=== PATIENT | female | born 1975 | race Caucasian/White ===

== ENCOUNTER 2020-10-14 23:13 | Inpatient (IN) ==
[2020-10-14] MEDS ORDERED: SODIUM CHLORIDE 0.9% 1000ML 1,000 ML IV ONE (23:33)
--- NOTE | 2020-10-14 23:37 | Emergency Department Note ---
Impression & Plan COVID-19, Generalized weakness, Bigeminy, Acute dehydration, Bradycardia, Aneurysm of ascending aorta ED Provider Note Name: CLEM HAYNES Age: 43 Sex: F Arrives Via: Walk-In Informant: Patient ED Provider: Chip Belle MD Chief Complaint: Lightheaded Impression: COVID-19 Generalized Weakness Bradycardia Bigeminy Acute Dehydration Aneurysm of Ascending Aorta Medical Decision Making: Pleasant 45 yr old female without PMH other than asthma arrives for acute weakness and fatigue. Known COVID positive from test this week. She has been on steroids the last few days already. She is dehydrated on exam and tired appearing. Pulse is only 30 though will note HR 60, though every second beat does not perfuse as bigeminy. She does appear better with some IV fluids though is still quite weak with attempting to stand. Labs unremarkable fortunately. With elevated dimer did feel that CT indicated which reveals COVID findings though no evidence PE, Dissection. Aortic aneurysm noted though this is consistent with incidental finding at this time. She was too weak to go home and hospitalist consulted for further management. Triage/Nursing Notes reviewed by Me Differentials:Reactive airway disease, pneumonia, pneumothorax, COPD, CHF, infections, cardiac ischemia, pulmonary embolism, musculoskeletal, gastr ointestinal, as well as other pathologies. Vital Signs: reviewed and remarkable for Bradycardia Interventions: Saline lock, nss bolsu Labs:Reviewed and remarkable for +dimer Imaging:X ray results are stated below per my interpretation: Chest: 1 view: No infiltrate, no effusion, normal cardiac border. [facility] Radiologist interpretation reviewed by me: CT PE study: no acute findings. Ascending aortic aneurysm EKG:Per My Interpretation: Indication Weakness: 64 bpm, qtc 443. PVS, LAFB, no ischemia. No previous for comparison. Cardiac/Tele Monitoring: Cardiac Monitoring: An Order was placed for continuous cardiac monitoring. The monitor shows a rate of 60 with a bigeminy rhythm. Consults:Dr Taco Gaines hospitalist Plan: Disposition:Hospitalization. Condition: Good Prescriptions:none PDMP: n/a History of Present Illness:43 yr old female arrives for evaluation of lightheadedness. Patient notes she was diagnosed with COVID 1 week ago. She had been having some SHOB for a few days prior to this. She was started on Steroids and notes feeling slightly better. Shortness of breath mostly resolved, but she has been having rapdily worsening weakness and fatigue since then. Admits minimal oral intake due to feeling quite unwell. Associate body aches, weakness, fatigue. Denies current chest pain, syncope, nausea, vomiting, fevers, chills, leg swelling, urinary/bowel changes, abdominal pain, back pain, neck stiffness, spinning vision, weakness in arm/leg nor stroke symptoms nor other symptoms . Denies any medications other than steroid. Exertion makes worse, rest makes better. ROS: See above HPI for pertinent positives & negatives. A total of 10 systems reviewed and were otherwise negative. Past Medical History:Asthma Past Surgical History: Family History:Parents Asthma Social History:Lives in [place], No smoking, no drugs, no alcohol. . Home Medications:Albuterol Allergies:NKDA Vitals:Blood Pressure: 160/110, Pulse 40, RR 19, T 36.5C, O2 98% on RA Physical Exam: GENERAL: Patient is very tired appearing and in mild distress. EYES: No scleral icterus, unremarkable pupils. ENT: Mucous membranes dry, no nasal congestion. NECK: No masses appreciated, nomeningismus, trachea is midline. RESPIRATORY: No dyspnea. Clear to auscultation and equal bilaterally. No wheeze, no rhonchi. CARDIOVASCULAR: Bradycardic.No murmurs, rubs, gallops appreciated. GASTROINTESTINAL: Abdomen soft, non-tender, no peritonitis.Bowel sounds positive.No masses appreciated. BACK: No midline tenderness, no CVA tenderness EXTREMITIES: Normal motion all extremities, no cyanosis, no edema. NEUROLOGIC: Alert and oriented, no acute motor or sensory deficits, no focal weakness, cranial nerves grossly intact. SKIN: No rash, no jaundice, no diaphoresis. PSYCH: Appropriate GCS: 15 ED Course: Times/Reassessments: stable, feeling a bit better though still quite lightheaded with movement. 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 Beliefs That Will Affect Care: None Current Living Situation: Family Other Information That Helps Us Care for You: No Feels Safe at Home: Yes Safety Concerns: Feels Safe At This Time Assistive Devices: None Allergies Allergies Allergy/AdvReac Type Severity Reaction Status Date / Time No Known Allergies Allergy Unverified 10/15/20 00:20 Home Meds Home Medications Medication Instructions Recorded Confirmed B-complex with vitamin C [Stress B 1 tab PO DAILY 10/15/20 10/15/20 Complex W/C] cholecalciferol (vitamin D3) 50 mcg PO DAILY 10/15/20 10/15/20 [Vitamin D3] citalopram 10 mg PO DAILY 10/15/20 10/15/20 propranolol 10 mg PO DAILY 10/15/20 10/15/20 zinc acetate 50 mg PO DAILY 10/15/20 10/15/20 Results & Data (ED) Vital Signs Vital Signs - 24 hr 10/14/20 23:17 10/14/20 23:26 10/15/20 00:00 Temperature 36.5 C Temperature Source Oral Pulse Rate 40 L 70 Pulse Rate [Right Finger] 82 Pulse Rate from SpO2 Sensor 37 L Respiratory Rate 19 19 Respiratory Effort / Characteristics Non-Labored Respiratory Depth Normal Blood Pressure 160/117 H Blood Pressure Mean 131 Pulse Oximetry 98 97 Oxygen Delivery Method Sepsis Recent Fever Within 48 Hours No Sepsis New/Unexplained Change in Mental Status N/A Sepsis Action Taken by Nursing No Action Required 10/15/20 00:13 10/15/20 00:30 10/15/20 01:00 Temperature Temperature Source Pulse Rate 71 69 67 Pulse Rate [Right Finger] Pulse Rate from SpO2 Sensor 35 L 35 L 34 L Respiratory Rate 20 19 19 Respiratory Effort / Characteristics Respiratory Depth Blood Pressure 158/80 H 128/60 123/62 Blood Pressure Mean 98 74 80 Pulse Oximetry 97 96 97 Oxygen Delivery Method Room Air Room Air Sepsis Recent Fever Within 48 Hours Sepsis New/Unexplained Change in Mental Status Sepsis Action Taken by Nursing 10/15/20 01:31 10/15/20 02:00 Temperature Temperature Source Pulse Rate 59 L 63 Pulse Rate [Right Finger] Pulse Rate from SpO2 Sensor 57 L 60 Respiratory Rate 16 16 Respiratory Effort / Characteristics Respiratory Depth Blood Pressure 160/59 H 148/89 H Blood Pressure Mean 97 109 Pulse Oximetry 97 98 Oxygen Delivery Method Room Air Room Air Sepsis Recent Fever Within 48 Hours Sepsis New/Unexplained Change in Mental Status Sepsis Action Taken by Nursing Laboratory Data Result diagrams: 10/15/20 00:05 10/15/20 00:05 Lab Results 10/15/20 10/15/20 10/15/20 Range/Units 00:05 00:05 00:05 WBC 6.48 (4.8-10.8) K/uL RBC 4.43 (4.2-5.4) M/uL Hgb 13.5 (12.0-16.0) g/dL Hct 40.5 (37-47) % MCV 91.4 (80-100) fL MCH 30.5 (25-34) pg MCHC 33.3 (32-36) g/dL RDW Std Deviation 42.3 (36.4-46.3) fL RDW Coeff of Madai 12.6 (11.5-14.5) % Plt Count 322 (130-400) K/uL MPV 10.0 (7.4-10.4) fL Immature Gran % (Auto) 0.6 % Neut % (Auto) 54.6 % Lymph % (Auto) 36.3 % Irion % (Auto) 6.2 % Eos % (Auto) 1.7 % Baso % (Auto) 0.6 % Neut # (Auto) 3.54 (1.4-6.5) K/uL Lymph # (Auto) 2.35 (1.2-3.4) K/uL Irion # (Auto) 0.40 (0.11-0.59) K/uL Eos # (Auto) 0.11 (0-0.5) K/uL Baso # (Auto) 0.04 (0-0.2) K/uL Immature Gran # (Auto) 0.04 H (0.00-0.02) K/uL PT 11.6 (9.0-12.0) Seconds INR 1.1 (0.9-1.1) APTT 26.0 (21.0-31.0) Seconds PTT Ratio 0.9 D-Dimer 1080 H* (0-500) ug/L FEU Sodium 141 (136-145) mmol/L Potassium 3.6 (3.5-5.1) mmol/L Chloride 109 H (98-107) mmol/L Carbon Dioxide 27 (21-32) mmol/L Anion Gap 5.0 (3-11) BUN 10 (7-18) mg/dl Creatinine 0.85 (0.6-1.2) mg/dl Est Cr Clr Drug Dosing 88.2 ml/min Est GFR ( Amer) 95.2 Est GFR (Non-Af Amer) 82.2 BUN/Creatinine Ratio 11.7 (10-20) Glucose 104 H (70-99) mg/dl Calcium 8.5 (8.5-10.1) mg/dl Magnesium 2.2 (1.8-2.4) mg/dl Total Bilirubin 0.6 (0.2-1) mg/dl Direct Bilirubin 0.1 (0-0.2) mg/dl AST 14 L (15-37) U/L ALT 31 (12-78) U/L Alkaline Phosphatase 102 (45-117) U/L Total Creatine Kinase 58 (26-192) U/L Troponin I < 0.015 (0-0.045) ng/ml C-Reactive Protein < 0.29 (0-0.29) mg/dl NT-Pro-B Natriuret Pep 215 (0-450) pg/ml Total Protein 8.1 (6.4-8.2) gm/dl Albumin 3.7 (3.4-5.0) gm/dl TSH 2.360 (0.300-4.500) uIu/ml Adenovirus (PCR) (NotDetected) B. pertussis DNA (PCR) (NotDetected) B.parapertussis DNA PCR (NotDetected) Lyme Disease IgG Ab (Negative) Lyme Disease IgM Ab (Negative) C. pneumoniae DNA (PCR) (NotDetected) Coronavirus OC43 (PCR) (NotDetected) Coronavirus HKU1 (PCR) (NotDetected) Coronavirus 229E (PCR) (NotDetected) COVID-19 PCR (NotDetected) Coronavirus NL63 (PCR) (NotDetected) Human Metapneumovir PCR (NotDetected) Influenza Type A (PCR) (NotDetected) Influenza Type B (PCR) (NotDetected) M. pneumoniae (PCR) (NotDetected) Parainfluenza 1 (PCR) (NotDetected) Parainfluenza 2 (PCR) (NotDetected) Parainfluenza 3 (PCR) (NotDetected) Parainfluenza 4 (PCR) (NotDetected) RSV (PCR) (NotDetected) Entero/Rhino (PCR) (NotDetected) 10/15/20 10/15/20 Range/Units 00:05 03:08 WBC (4.8-10.8) K/uL RBC (4.2-5.4) M/uL Hgb (12.0-16.0) g/dL Hct (37-47) % MCV (80-100) fL MCH (25-34) pg MCHC (32-36) g/dL RDW Std Deviation (36.4-46.3) fL RDW Coeff of Madai (11.5-14.5) % Plt Count (130-400) K/uL MPV (7.4-10.4) fL Immature Gran % (Auto) % Neut % (Auto) % Lymph % (Auto) % Irion % (Auto) % Eos % (Auto) % Baso % (Auto) % Neut # (Auto) (1.4-6.5) K/uL Lymph # (Auto) (1.2-3.4) K/uL Irion # (Auto) (0.11-0.59) K/uL Eos # (Auto) (0-0.5) K/uL Baso # (Auto) (0-0.2) K/uL Immature Gran # (Auto) (0.00-0.02) K/uL PT (9.0-12.0) Seconds INR (0.9-1.1) APTT (21.0-31.0) Seconds PTT Ratio D-Dimer (0-500) ug/L FEU Sodium (136-145) mmol/L Potassium (3.5-5.1) mmol/L Chloride (98-107) mmol/L Carbon Dioxide (21-32) mmol/L Anion Gap (3-11) BUN (7-18) mg/dl Creatinine (0.6-1.2) mg/dl Est Cr Clr Drug Dosing ml/min Est GFR ( Amer) Est GFR (Non-Af Amer) BUN/Creatinine Ratio (10-20) Glucose (70-99) mg/dl Calcium (8.5-10.1) mg/dl Magnesium (1.8-2.4) mg/dl Total Bilirubin (0.2-1) mg/dl Direct Bilirubin (0-0.2) mg/dl AST (15-37) U/L ALT (12-78) U/L Alkaline Phosphatase (45-117) U/L Total Creatine Kinase (26-192) U/L Troponin I (0-0.045) ng/ml C-Reactive Protein (0-0.29) mg/dl NT-Pro-B Natriuret Pep (0-450) pg/ml Total Protein (6.4-8.2) gm/dl Albumin (3.4-5.0) gm/dl TSH (0.300-4.500) uIu/ml Adenovirus (PCR) Not Detected (NotDetected) B. pertussis DNA (PCR) Not Detected (NotDetected) B.parapertussis DNA PCR Not Detected (NotDetected) Lyme Disease IgG Ab Negative (Negative) Lyme Disease IgM Ab Negative (Negative) C. pneumoniae DNA (PCR) Not Detected (NotDetected) Coronavirus OC43 (PCR) Not Detected (NotDetected) Coronavirus HKU1 (PCR) Not Detected (NotDetected) Coronavirus 229E (PCR) Not Detected (NotDetected) COVID-19 PCR DETECTED A* (NotDetected) Coronavirus NL63 (PCR) Not Detected (NotDetected) Human Metapneumovir PCR Not Detected (NotDetected) Influenza Type A (PCR) Not Detected (NotDetected) Influenza Type B (PCR) Not Detected (NotDetected) M. pneumoniae (PCR) Not Detected (NotDetected) Parainfluenza 1 (PCR) Not Detected (NotDetected) Parainfluenza 2 (PCR) Not Detected (NotDetected) Parainfluenza 3 (PCR) Not Detected (NotDetected) Parainfluenza 4 (PCR) Not Detected (NotDetected) RSV (PCR) Not Detected (NotDetected) Entero/Rhino (PCR) Not Detected (NotDetected) Administered Medications Discontinued Medications Sodium Chloride (Nss 1000ml) 1,000 mls @ 999 mls/hr IV .Q1H1M ONE Stop: 10/15/20 00:33 Last Infusion: 10/15/20 01:22 Dose: 0 mls/hr Documented by: [id number] Admin: 10/15/20 00:21 Dose: 999 mls/hr Documented by: [id number] Sodium Chloride (Nss 1000ml) 1,000 mls @ 125 mls/hr IV .Q8H ARON Stop: 11/14/20 02:14 Last Infusion: 10/15/20 06:26 Dose: 125 mls/hr Documented by: [id number] Admin: 10/15/20 02:36 Dose: 125 mls/hr Documented by: [id number] Ioversol (Optiray 320 125ml) 125 ml IV ONCE ONE Stop: 10/15/20 01:38 Last Admin: 10/15/20 01:38 Dose: 118 ml Documented by: [id number] Discharge Plan Visit Data Chief Complaint: Illness Stated Complaint: DIZZINESS - HEART IRREGULARITY ED Provider: Chip Belle Discharge Problem: COVID-19, Generalized weakness, Bigeminy, Acute dehydration, Bradycardia, Aneurysm of ascending aorta Patient Disposition: Admitted As Inpatient Discharge Instructions Interventions: ED Discharge Assessment Last Done: 10/15/20 05:28
[2020-10-15 00:25] LABS: Basophils # (auto) 0.04 K/uL (0-0.2); Basophils % (auto) 0.6 %; Eosinophils # (auto) 0.11 K/uL (0-0.5); Eosinophils % (auto) 1.7 %; Hematocrit (blood only) 40.5 % (37-47); Hemoglobin 13.5 g/dL (12.0-16.0); Immature Granulocytes # (auto) 0.04 K/uL (0.00-0.02); Immature Granulocytes % (auto) 0.6 %; Lymphocytes # (auto) 2.35 K/uL (1.2-3.4); Lymphocytes % (auto) 36.3 %; Mean Corpuscular Hemoglobin 30.5 pg (25-34); Mean Corpuscular Hgb Conc 33.3 g/dL (32-36); Mean Corpuscular Volume 91.4 fL (80-100); Monocytes % (auto) 6.2 %; Neutrophils # (auto) 3.54 K/uL (1.4-6.5); Neutrophils % (auto) 54.6 %; Platelet Count 322 K/uL (130-400); RDW Coefficient of Variation 12.6 % (11.5-14.5); RDW Standard Deviation 42.3 fL (36.4-46.3); Red Blood Count 4.43 M/uL (4.2-5.4); White Blood Count 6.48 K/uL (4.8-10.8)
[2020-10-15 00:35] LABS: INR 1.1 (0.9-1.1); Partial Thromboplastin Ratio 0.9; Prothrombin Time 11.6 Seconds (9.0-12.0)
[2020-10-15 00:54] LABS: Alanine Aminotransferase 31 U/L (12-78); Albumin Level 3.7 gm/dl (3.4-5.0); Aspartate Aminotransferase 14 U/L (15-37); BUN Creatinine Ratio 11.7 (10-20); Bilirubin Direct 0.1 mg/dl (0-0.2); Blood Urea Nitrogen 10 mg/dl (7-18); Calcium 8.5 mg/dl (8.5-10.1); Carbon Dioxide 27 mmol/L (21-32); Chloride 109 mmol/L (98-107); Creatinine Clr Calc Pharmacy 88.2 ml/min; Est GFR (African American) 95.2; Est GFR (Non-African American) 82.2; Glucose 104 mg/dl (70-99); Magnesium 2.2 mg/dl (1.8-2.4); Potassium 3.6 mmol/L (3.5-5.1); Sodium 141 mmol/L (136-145)
[2020-10-15 00:55] LABS: D Dimer 1080 ug/L FEU (0-500)
[2020-10-15 01:02] LABS: Alkaline Phosphatase 102 U/L (45-117); Bilirubin,Total 0.6 mg/dl (0.2-1); C Reactive Protein < 0.29 mg/dl (0-0.29); Creatine Kinase 58 U/L (26-192); NT Pro B Type Natriuretic Pept 215 pg/ml (0-450); Total Protein 8.1 gm/dl (6.4-8.2); Troponin I < 0.015 ng/ml (0-0.045)
[2020-10-15 01:21] LABS: Lyme Ab IgG w/WB Rflx Negative (Negative); Lyme Ab IgM w/WB Rflx Negative (Negative)
[2020-10-15] MEDS ORDERED: OPTIRAY 320 125ml IV ONE (01:37)
[2020-10-15] MEDS ORDERED: SODIUM CHLORIDE 0.9% 1000ML 1,000 ML IV SCH (02:15)
[2020-10-15 04:30] LABS: Adenovirus PCR Not Detected (NotDetected); Bordetella parapertussis PCR Not Detected (NotDetected); Bordetella pertussis PCR Not Detected (NotDetected); Chlamydia pneumoniae PCR Not Detected (NotDetected); Coronavirus 229E PCR Not Detected (NotDetected); Coronavirus HKU1 PCR Not Detected (NotDetected); Coronavirus NL63 PCR Not Detected (NotDetected); Coronavirus OC43PCR Not Detected (NotDetected); Human Metapneumovirus PCR Not Detected (NotDetected); Influenza A PCR Not Detected (NotDetected); Influenza B PCR Not Detected (NotDetected); Mycoplasma pneumoniae PCR Not Detected (NotDetected); Parainfluenza Virus 1 PCR Not Detected (NotDetected); Parainfluenza Virus 2 PCR Not Detected (NotDetected); Parainfluenza Virus 3 PCR Not Detected (NotDetected); Parainfluenza Virus 4 PCR Not Detected (NotDetected); Respiratory Syncytial VirusPCR Not Detected (NotDetected); Rhinovirus/Enterovirus PCR Not Detected (NotDetected)
[2020-10-15 04:35] LABS: Coronavirus CoV-2 (COVID19)PCR DETECTED (NotDetected)
[2020-10-15] MEDS ORDERED: NITROGLYCERIN SL 0.4 MG/TAB TAB SL PRN (05:54)
[2020-10-15] MEDS ORDERED: ACETAMINOPHEN 325 MG TAB PO PRN (05:54)
[2020-10-15] MEDS ORDERED: ONDANSETRON INJ 2 MG/ML 2 ML VIAL IV PRN (05:54)
[2020-10-15] MEDS ORDERED: PNEUMOCOCCAL ADMINISTRATION CHARGE ONE (06:14)
[2020-10-15] MEDS ORDERED: INFLUENZA VIRUS QUAD VACCINE 0.5 ML SYR IM ONE (06:14)
[2020-10-15] MEDS ORDERED: INFLUENZA ADMINISTRATION CHARGE ONE (06:14)
[2020-10-15] MEDS ORDERED: PNEUMOCOCCAL POLYSACCHARIDES 25 MCG/0.5 ML VIAL/SYR IM ONE (06:14)
--- NOTE | 2020-10-15 07:46 | XRay Report ---
SINGLE VIEW CHEST CLINICAL HISTORY: Bradycardia.Covid. FINDINGS: An AP, portable, upright chest radiograph is obtained. No prior studies are available for c omparison at the time of dictation. The heart is enlarged. The pulmonary vasculature is noncongested . There is mild bibasilar atelectasis. The lungs and pleural spaces are otherwise clear. No pneumotho rax is seen. The bony thorax is grossly intact. IMPRESSION: Cardiomegaly with no acute cardiopulmonary abnormality. ACT 112: Negative or not required by law. Electronically signed by: Emir Esteban M.D. 10/15/2020 7:45 AM
--- NOTE | 2020-10-15 07:54 | CT Scan Report ---
CT ANGIOGRAM OF THE CHEST CLINICAL HISTORY: Dyspnea. Covid. COMPARISON STUDY: Chest x-ray dated 10/14/2020. TECHNIQUE: Following the IV administration of 118 cc of Optiray 320, CT angiogram of the chest was pe rformed from the upper abdomen to the thoracic inlet utilizing the pulmonary embolus protocol. Images are reviewed in the axial, sagittal, and coronal planes. 3-D MIPS images are created and assessed. I V contrast was administered without complication. A dose lowering technique was utilized adhering to the principles of ALARA. CT DOSE: 506.18 mGycm FINDINGS: Thyroid: Imaged portions of the thyroid gland are normal in size and attenuation. Thoracic aorta: There is mild ectasia of the ascending thoracic aorta which measures up to 4.0 cm in diameter. The remainder of the thoracic aorta is normal in caliber, and the arch demonstrates standar d 3-vessel anatomy. The thoracic aorta is not well opacified. Pulmonary vasculature: The pulmonary trunk is normal in caliber. There are no filling defects identif ied in main, lobar, or segmental pulmonary branches to suggest pulmonary embolus. Heart: The heart is normal in size and without pericardial effusion. Lungs and pleural spaces: Evaluation of the lung parenchyma is modestly degraded by motion artifact. There is no airspace consolidation or pleural effusion. Foci of air trapping are seen throughout both lungs. The trachea and central airways are clear. There is mild diffuse peribronchial thickening. Mediastinum: There is no mediastinal lymphadenopathy. Roselia: Clear. Axillae: There is no axillary lymphadenopathy. Upper abdomen: There is a small hiatal hernia. Partially visualized upper abdominal viscera is otherw ise within normal limits. Skeletal structures: No lytic or blastic bony lesions are seen. IMPRESSION: 1. There is no evidence of pulmonary embolus in the main, lobar, or segmental pulmonary arteries. 2. Cardiomegaly. 3. There is no airspace consolidation or pleural effusion. 4. Mild diffuse peribronchial thickening suggests bronchitis/reactive airway disease. Clinical correl ation will be required. 5. There is ectasia of the ascending thoracic aorta which measures up to 4.0 cm. ACT 112: Negative or not required by law. Electronically signed by: Emir Esteban M.D. 10/15/2020 7:53 AM
[2020-10-15 08:32] LABS: Basophils # (auto) 0.02 K/uL (0-0.2); Basophils % (auto) 0.4 %; Eosinophils # (auto) 0.08 K/uL (0-0.5); Eosinophils % (auto) 1.4 %; Hematocrit (blood only) 39.5 % (37-47); Hemoglobin 13.3 g/dL (12.0-16.0); Immature Granulocytes # (auto) 0.03 K/uL (0.00-0.02); Immature Granulocytes % (auto) 0.5 %; Lymphocytes # (auto) 2.02 K/uL (1.2-3.4); Lymphocytes % (auto) 35.9 %; Mean Corpuscular Hemoglobin 30.9 pg (25-34); Mean Corpuscular Hgb Conc 33.7 g/dL (32-36); Mean Corpuscular Volume 91.9 fL (80-100); Mean Platelet Volume 9.8 fL (7.4-10.4); Monocytes # (auto) 0.45 K/uL (0.11-0.59); Neutrophils # (auto) 3.03 K/uL (1.4-6.5); Neutrophils % (auto) 53.8 %; Platelet Count 308 K/uL (130-400); RDW Coefficient of Variation 12.9 % (11.5-14.5); RDW Standard Deviation 42.9 fL (36.4-46.3); White Blood Count 5.63 K/uL (4.8-10.8)
[2020-10-15] MEDS: ENOXAPARIN INJ 40 MG/0.4 ML SYR SQ SCH (08:53)
[2020-10-15] MEDS: CITALOPRAM 20 MG TAB PO SCH (08:53)
[2020-10-15] MEDS: VITAMIN B COMPLEX TAB PO SCH (08:54)
[2020-10-15] MEDS: CHOLECALCIFEROL 1,000 UNITS 25 MCG TAB PO SCH (08:54)
[2020-10-15 09:30] LABS: BUN Creatinine Ratio 8.2 (10-20); Blood Urea Nitrogen 6 mg/dl (7-18); Calcium 8.7 mg/dl (8.5-10.1); Carbon Dioxide 29 mmol/L (21-32); Chloride 110 mmol/L (98-107); Creatinine Clr Calc Pharmacy 97.8 ml/min; Est GFR (African American) 107.3; Est GFR (Non-African American) 92.6; Glucose 98 mg/dl (70-99); Magnesium 2.2 mg/dl (1.8-2.4); Potassium 4.1 mmol/L (3.5-5.1); Sodium 140 mmol/L (136-145)
[2020-10-15 09:38] LABS: Troponin I < 0.015 ng/ml (0-0.045)
--- NOTE | 2020-10-15 10:20 | History and Physical Report ---
DATE OF ADMISSION: 10/15/2020 CHIEF COMPLAINT: Dizziness, weakness. HISTORY OF PRESENT ILLNESS: This is a 45-year-old female with past medical history significant for asthma, seasonal allergic rhinitis, adjustment disorder with depressed mood, who was recently diagnosed with COVID on 10/05, comes with dizziness and weakness. The patient is not sure, but [place] went [place] of [place] and the symptoms started around 09/28. She has asthma and has no other exposure to COVID and no one sick in the family. She thought that she developed asthma exacerbation and went to see her family doctor on 10/05. She was initially treated for asthma with a steroid shot, but also at that time checked for COVID, it came back as positive and she has been quarantining since then. Also the patient then started to have some tachycardia, palpitations. The patient says the palpitations started initially prior to steroid shot and her PCP prescribed propranolol. She started taking since Thursday and she initially took 10 mg twice daily, but it was not helping, so she is taking 20 mg twice daily, total of 40 mg. She says she did not take it today because today she was feeling very dizzy and lightheaded and weakness, and her advised to come to the hospital. In the ER, she was found to have bradycardia, PVCs and occasional bigeminy, so we were called for admission. Currently, she is resting comfortably and hemodynamically stable. On the monitor, heart rate is in the 50s and 60s. No leukopenia and lymphopenia and D-dimer was elevated at 1080. Troponin is negative, BNP is negative. As per the ER physician, CTA of the chest was done, though images are still not on the chart and there was no PE, showing some infiltrates consistent with recent COVID. Since the symptoms started more than 2 weeks ago, BioFire was done, which came back as positive for COVID. The patient says initially she had a lot of cough, but the cough is much improved, but still has some shortness of breath but that is much improved. Initially, she had diarrhea that has resolved. Initially she had low-grade fever, but since last 1 week she has no fevers. Has some headache. Initially, she had a loss of sense of smell and taste, but that has returned, but her appetite is still poor. No blurred visions. No earache, no runny nose, no sore throat. She has some chest discomfort. She describes it as pain in her lungs. Currently, no nausea, no vomiting. Currently, no diarrhea. Normal bladder movements. No rash, no swelling in the legs. ALLERGIES: No known drug allergies. PAST MEDICAL HISTORY: As mentioned above. PAST SURGICAL HISTORY: . MEDICATIONS: The patient is on B complex 1 tablet daily, vitamin D 50 mcg p.o. daily, citalopram 10 mg p.o. daily, propranolol currently taking 20 mg p.o. b.i.d., zinc acetate 50 mg p.o. daily. FAMILY HISTORY: No family history in file. SOCIAL HISTORY: . No smoking, no alcohol, no drug use. REVIEW OF SYSTEMS: As per HPI. Rest of review of symptoms is negative. PHYSICAL EXAMINATION: GENERAL: The patient is of moderate build, not in acute distress. VITAL SIGNS: Temperature 36.5, pulse ranging from 40-60s, respiratory rate 16, blood pressure 111/65, oxygen 97% on room air. HEENT: Pupils equal, round, reactive to light. Oral mucosa moist. NECK: No JVD, no neck masses seen. CARDIOVASCULAR: S1, S2 heard. Bradycardia. No murmurs, no gallop. RESPIRATORY SYSTEM: Normal AP diameter. No accessory muscle use. No wheezing, no crackles. ABDOMEN: Soft, bowel sounds present, nontender. No distention. CENTRAL NERVOUS SYSTEM: Cranial nerves II-XII grossly intact, nonfocal. EXTREMITIES: No edema, no erythema. LABORATORY DATA: WBC 6.4, hemoglobin 13.5, hematocrit 40.5, platelets 322. PT 11.6, INR 1.1, APTT 26. D-dimer 1080. Sodium 141, potassium 3.6, chloride 109, bicarbonate 27, BUN 10, creatinine 0.85, serum glucose 104, calcium 8.5, magnesium 2.2, total bilirubin 0.6, direct bilirubin 0.1, AST 14, ALT 31, alkaline phosphatase 102, total creatine kinase 58, troponin I less than 0.015. C-reactive protein less than 0.29. BNP 215. TSH is 2.3. Biofire covid PCR positive. IMAGING: Chest x-ray, no acute findings. EKG: Sinus rhythm with occasional PVCs at a rate of 64, left anterior fascicular block. ASSESSMENT AND PLAN: This is a 45-year-old female, recent COVID positive, who comes with dizziness and found to have bradycardia. 1. Dizziness and bradycardia. EKG showing premature ventricular contractions and left anterior fascicular block. She recently started taking propranolol that could be contributing to her bradycardia. Electrolytes are okay. Laboratories are fine. CTA chest imaging is not on the computer, but as per the Emergency Room physician, no pulmonary embolism. We will monitor in the telemetry floor. We will consult cardiology in the morning for further recommendation, hold the propranolol. 2. COVID diagnosed on 10/05. Symptoms started about 09/28. Her COVID symptoms have much improved. COVID positive on the BioFire but doubt she is still infective, we will monitor and continue isolation precautions.. 3. Asthma, currently stable, albuterol p.r.n. 4. Depression. Continue citalopram. 5. Deep venous thrombosis prophylaxis, placed on Lovenox. DISPOSITION: Closely monitor in the tele floor. Level 1 full code. MTDD
--- NOTE | 2020-10-15 13:16 | Cardiology Consultation ---
Date of Consultation October 15, 2020 Assessment & Plan (1) COVID-19: Continue supportive care. Patient states shortness of breath has improved. (2) Bigeminy: Patient with findings of sinus rhythm with occasional PVCs including PVCs in a pattern of ventricular bigeminy. I would speculate, that when her heart rate was taken by peripheral pulse, with the PVC beats could not be detected and that her heart rate was really not 30 bpm, but likely 60 bpm with underlying bigeminy. Her telemetry finding certainly support this. She did not tolerate treatment with propranolol. I personally favor a cardiac selective beta-miguel, metoprolol for this and will add this at present. Electrolytes normal limits. I think the CT scan is provided useful data, will hold off on echocardiogram given her COVID-19 status as I do not think it would change the management at present. If her subjective palpitations persist after she recovers from COVID-19, would have low threshold to proceed with a resting echocardiogram at that time. (3) Aneurysm of ascending aorta: Incidental finding. I do not see that she has received this diagnosis via past imaging. This will need follow-up in the future, likely with additional imaging such as an echocardiogram or CT scan at a 6-month interval and if stable, additional imaging can be determined at that time. History of Present Illness Attending Physician: Emre Alves MD History of Present Illness Marika Mai is a 45 year old female seen in cardiology consultation per the request of Dr España concerns of potential symptomatic bradycardia. This consultation was performed via review of the patient's records and clinical data, and by telephone interview with her. No physical exam was performed. She had initially been seen by primary care in [place] on 10/05/2020 for complaint of shortness of breath and cough. She has a history of asthma. A COVID-19 test was obtained at that time and was positive. She was subsequently placed on treatment that included corticosteroids and inhaled bronchodilators. She notes a history of feeling poorly when she is on prednisone in the past. On 10/10/2020 she had contacted her primary care provider with concerns of increased palpitations, and a course of propranolol was initiated. She does not have any past history of past cardiac monitors. She presented to the emergency room last evening with complaints of dizziness. Her had taken her pulse rate at home and it was around 30 bpm on palpating her wrist. She has been taking propranolol 20 mg twice a day, but did not take any yesterday or thus far today. EKG performed 10/14/2020 reveals sinus rhythm at 64 bpm with 2 noted PVCs. Review of her telemetry reveals underlying rhythm is sinus rhythm with occasional PVCs including episodes of sinus rhythm with frequent PVCs in a pattern of ventricular bigeminy. Overall, her heart rates have been in the range of 60 to 80 bpm. Per my telephone conversation with her, her dizziness had subsided, although she really had not been out of bed much thus far today. Electrolytes have been within normal limits. Chest CT performed upon arrival to the emergency room revealed no evidence of pulmonary embolism no airspace consolidation or pleural effusion. Diffuse mild peribronchial thickening suggestive of bronchitis reactive airway disease noted. Ectasia of the ascending aorta noted with measurement up to 4 cm per the radiology report. Allergies Allergy/AdvReac Type Severity Reaction Status Date / Time No Known Allergies Allergy Unverified 10/15/20 00:20 Home Medications Medication Instructions Recorded Confirmed Type B-complex with vitamin C [Stress B 1 tab PO DAILY 10/15/20 10/15/20 History Complex W/C] cholecalciferol (vitamin D3) 50 mcg PO DAILY 10/15/20 10/15/20 History [Vitamin D3] citalopram 10 mg PO DAILY 10/15/20 10/15/20 History propranolol 10 mg PO DAILY 10/15/20 10/15/20 History zinc acetate 50 mg PO DAILY 10/15/20 10/15/20 History Patient History Social History Smoking Status: Never smoker Hx Alcohol Use: No Hx Substance Use: No Communication Ability: Effective 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 Beliefs That Will Affect Care: None Current Living Situation: Family Other Information That Helps Us Care for You: No Feels Safe at Home: Yes Safety Concerns: Feels Safe At This Time Assistive Devices: None Review of Systems Review of Systems: All systems reviewed & are unremarkable except as noted in HPI & below Physical Exam Physical Exam: Temp Pulse Resp BP Pulse Ox 36.7 C 58 L 18 118/72 96 10/15/20 11:39 10/15/20 11:39 10/15/20 11:39 10/15/20 11:39 10/15/20 11:39 As noted, in person physical exam not performed Results & Data ([facility]) Vital Signs (Past 12 Hours) Vital Signs Temp Pulse Pulse Resp BP BP Pulse Ox 10/15/20 11:39 36.7 C 58 L 18 118/72 96 10/15/20 08:00 78 10/15/20 07:53 36.9 C 68 17 147/89 H 98 10/15/20 05:54 37 C 71 18 159/79 H 97 10/15/20 05:28 60 18 132/74 97 10/15/20 03:39 56 L 16 111/65 97 10/15/20 02:00 63 16 148/89 H 98 10/15/20 01:31 59 L 16 160/59 H 97 Laboratory Results Cardiac Enzymes 10/15/20 10/15/20 Range/Units 00:05 07:59 AST 14 L (15-37) U/L Troponin I < 0.015 < 0.015 (0-0.045) ng/ml Coagulation 10/15/20 Range/Units 00:05 PT 11.6 (9.0-12.0) Seconds APTT 26.0 (21.0-31.0) Seconds CBC 10/15/20 10/15/20 Range/Units 00:05 07:59 WBC 6.48 5.63 (4.8-10.8) K/uL RBC 4.43 4.30 (4.2-5.4) M/uL Hgb 13.5 13.3 (12.0-16.0) g/dL Hct 40.5 39.5 (37-47) % Plt Count 322 308 (130-400) K/uL Neut # (Auto) 3.54 3.03 (1.4-6.5) K/uL Lymph # (Auto) 2.35 2.02 (1.2-3.4) K/uL [place] # (Auto) 0.40 0.45 (0.11-0.59) K/uL Eos # (Auto) 0.11 0.08 (0-0.5) K/uL Baso # (Auto) 0.04 0.02 (0-0.2) K/uL Comprehensive Metabolic Panel 10/15/20 10/15/20 Range/Units 00:05 07:59 Sodium 141 140 (136-145) mmol/L Potassium 3.6 4.1 (3.5-5.1) mmol/L Chloride 109 H 110 H (98-107) mmol/L Carbon Dioxide 27 29 (21-32) mmol/L BUN 10 6 L (7-18) mg/dl Creatinine 0.85 0.77 (0.6-1.2) mg/dl Glucose 104 H 98 (70-99) mg/dl Calcium 8.5 8.7 (8.5-10.1) mg/dl Direct Bilirubin 0.1 (0-0.2) mg/dl AST 14 L (15-37) U/L ALT 31 (12-78) U/L Alkaline Phosphatase 102 (45-117) U/L Total Protein 8.1 (6.4-8.2) gm/dl Albumin 3.7 (3.4-5.0) gm/dl Intake and Output 10/14/20 10/15/20 10/15/20 22:59 06:59 14:59 Intake Total 1000 / 1000 Balance 1000 / 1000 Intake: IV 1000 / 1000 Nss 1000ML 1,000 ml @ 125 mls/ 1000 / 1000 hr IV .Q8H [facility] Rx#:[id number] Other: Weight 87.6 kg Weight Measurement Method Standing Scale
--- NOTE | 2020-10-15 13:44 | Electrocardiogram Report ---
Test Reason : Blood Pressure : / mmHG Vent. Rate : 064 BPM Atrial Rate : 064 BPM P-R Int : 188 ms QRS Dur : 092 ms QT Int : 430 ms P-R-T Axes : 001 -48 064 degrees QTc Int : 443 ms Sinus rhythm with occasional Premature ventricular complexes Left anterior fascicular block Anterior infarct , age undetermined Abnormal ECG No previous ECGs available Confirmed by Niranjan Dove ([id number]) on 10/15/2020 1:44:15 PM Referred By: REFERRED SELF Confirmed By:Niranjan Dove
[2020-10-15] MEDS: METOPROLOL SUCC 25MG EXT REL TAB PO SCH (14:50)
--- NOTE | 2020-10-15 15:44 | Hospitalist Progress Note ---
Date of Service October 15, 2020 and October 16, 2020 Assessment & Plan (1) COVID-19: Initial diagnosis of COVID-19 as an outpatient on 10/05/2020 without any definitive history of contact Prior to the diagnosis she has had anosmia and diarrhea on occasions but no overt shortness of breath and no fever She did not any received treatment for COVID-19 since then She presented to the ER with dizziness palpitation and generalized weakness and some shortness of breath on exertion Covid test came back positive again She has been asymptomatic and does not require any oxygen no treatment for the Covid 19 was given due to known side effect of the medications used which outweighs the benefit this time CTA did not show any infiltration and/or pulmonary embolism Saturating well on room air without any cough and/or shortness of breath Minimal cough and no wheezing still has some shortness of breath with exertion Acute migraine Takes Excedrin as an outpatient Was given Fioricet We will avoid giving any triptan (2) Bigeminy: Noted to have frequent ectopics and possible bigeminy in EKG The cause for her palpitation and dizziness with ambulation She has been getting propranolol as an outpatient which were changed to Toprol XL Appreciate cardiology input and recommendation Out any ACS-no ACS Monitor shows a few ectopics Denies any dizziness with ambulation Be discharged home this afternoon (3) Generalized weakness: Could be part of the problem due to COVID-19 Advised to drink more fluid and ambulate (4) Acute dehydration: Without any significant increase in BUN and creatinine Got 1 L of IV fluid on admission and the patient has been feeling little bit better Kidney function is normal DVT prophylaxis Subcu Lovenox Admission and Anticipated Discharge Date Admission Date: October 15, 2020 Anticipated date of discharge: 10/16/20 Subjective 10/15/2020 The patient was seen and examined in telemetry/Covid unit She was admitted with palpitation and dizziness with ambulation with a history of Covid infection diagnosed 05 October without any overt symptoms She denies any chest pain and/or palpitation Her minimal shortness of breath and cough are getting better 10/16/2020 The patient was seen and examined in telemetry/Covid unit She does not have any more dizziness and complains to have minimal palpitation She has had a type of migraine and she was given Fioricet and she can take another tablet She has been ambulating without any difficulty. Review of Systems Review of Systems: All systems reviewed and are unremarkable except as noted below Respiratory: + cough; no dyspnea and no dyspnea on exertion Cardiovascular: + palpitations; no chest pain and no dyspnea Neurologic: + generalized weakness Physical Exam Physical Exam: Lying in bed comfortably but complains today of some headache Constitutional: well developed, well nourished and + obese Eyes: PERRL, conjunctivae normal, anicteric sclerae ENMT: external ear and nose normal, oropharynx normal Neck: trachea midline, no thyromegaly Respiratory: no respiratory distress Auscultation: lungs clear to auscultation bilaterally; no crackles and no wheezes Cardiovascular: Rate/Rhythm: regular rate Heart Sounds: no murmur Gastrointestinal (Abdomen): Inspection/Auscultation: normal bowel sounds; abdomen not distended Percussion/Palpation: abdomen soft; abdomen nontender Musculoskeletal: No acute arthritis in any joint Neurologic: Alert, awake and oriented x3. No focal sensory and/or motor deficit appreciated Psychiatric: A+Ox3, euthymic affect Lymphatic: no cervical or axillary lymphadenopathy Results & Data Results & Data ([facility]) Vital Signs (Past 12 Hours) Vital Signs Temp Pulse Pulse Resp BP BP Pulse Ox 10/15/20 11:39 36.7 C 58 L 18 118/72 96 10/15/20 08:00 78 10/15/20 07:53 36.9 C 68 17 147/89 H 98 10/15/20 05:54 37 C 71 18 159/79 H 97 10/15/20 05:28 60 18 132/74 97 10/15/20 03:39 56 L 16 111/65 97 Laboratory Results Short CBC 10/16/20 Range/Units 05:39 WBC 6.60 (4.8-10.8) K/uL Hgb 13.4 (12.0-16.0) g/dL Hct 40.3 (37-47) % Plt Count 329 (130-400) K/uL [facility] 10/16/20 05:39 Sodium 137 Potassium 3.7 Chloride 105 Carbon Dioxide 26 BUN 10 Creatinine 0.87 Glucose 108 H Calcium 9.1 Short CBC 10/15/20 10/15/20 Range/Units 00:05 07:59 WBC 6.48 5.63 (4.8-10.8) K/uL Hgb 13.5 13.3 (12.0-16.0) g/dL Hct 40.5 39.5 (37-47) % Plt Count 322 308 (130-400) K/uL BMP 10/15/20 10/15/20 00:05 07:59 Sodium 141 140 Potassium 3.6 4.1 Chloride 109 H 110 H Carbon Dioxide 27 29 BUN 10 6 L Creatinine 0.85 0.77 Glucose 104 H 98 Calcium 8.5 8.7 Cardiac Enzymes 10/15/20 10/15/20 Range/Units 00:05 07:59 Total Creatine Kinase 58 (26-192) U/L Troponin I < 0.015 < 0.015 (0-0.045) ng/ml Liver Function 10/15/20 Range/Units 00:05 Total Bilirubin 0.6 (0.2-1) mg/dl Direct Bilirubin 0.1 (0-0.2) mg/dl AST 14 L (15-37) U/L ALT 31 (12-78) U/L Alkaline Phosphatase 102 (45-117) U/L Albumin 3.7 (3.4-5.0) gm/dl Medications Administered Current Inpatient Medications Acetaminophen (Acetaminophen 325 Mg Tab) 650 mg PO Q4H PRN PRN Reason: Pain or Fever Stop: 11/14/20 05:53 Citalopram Hydrobromide (Citalopram 20 Mg Tab) 10 mg PO DAILY [facility] Stop: 11/14/20 08:59 Last Admin: 10/15/20 08:53 Dose: 10 mg Documented by: Enoxaparin Sodium (Enoxaparin Inj 40 Mg/0.4 Ml Syr) [facility] Stop: 11/14/20 08:59 Last Admin: 10/15/20 08:53 Dose: 40 mg Documented by: Metoprolol Succinate (Metoprolol Succ 25mg Ext Rel Tab) 25 mg PO QAM [facility] Stop: 11/14/20 13:44 Last Admin: 10/15/20 14:50 Dose: 25 mg Documented by: Nitroglycerin (Nitroglycerin Sl 0.4 Mg/Tab Tab) 0.4 mg SL UD PRN PRN Reason: Chest Pain Stop: 11/14/20 05:53 Ondansetron HCl (Ondansetron Inj 2 Mg/Ml 2 Ml Vial) 4 mg IV Q6H PRN PRN Reason: Nausea Stop: 11/14/20 05:53 Vitamin B Complex (Vitamin B Complex Tab) 1 tab PO DAILY [facility] Stop: 11/14/20 08:59 Last Admin: 10/15/20 08:54 Dose: 1 tab Documented by: Vitamin D (Cholecalciferol 1,000 Units 25 Mcg Tab) 2,000 units PO DAILY [facility]ON Stop: 11/14/20 08:59 Last Admin: 10/15/20 08:54 Dose: 2,000 units Documented by:
[2020-10-16 06:24] LABS: Basophils # (auto) 0.03 K/uL (0-0.2); Basophils % (auto) 0.5 %; Eosinophils % (auto) 1.5 %; Hematocrit (blood only) 40.3 % (37-47); Hemoglobin 13.4 g/dL (12.0-16.0); Immature Granulocytes # (auto) 0.06 K/uL (0.00-0.02); Immature Granulocytes % (auto) 0.9 %; Lymphocytes # (auto) 2.19 K/uL (1.2-3.4); Lymphocytes % (auto) 33.2 %; Mean Corpuscular Hemoglobin 30.9 pg (25-34); Mean Corpuscular Hgb Conc 33.3 g/dL (32-36); Mean Corpuscular Volume 92.9 fL (80-100); Mean Platelet Volume 10.3 fL (7.4-10.4); Monocytes # (auto) 0.58 K/uL (0.11-0.59); Monocytes % (auto) 8.8 %; Neutrophils # (auto) 3.64 K/uL (1.4-6.5); Neutrophils % (auto) 55.1 %; Platelet Count 329 K/uL (130-400); RDW Coefficient of Variation 12.9 % (11.5-14.5); RDW Standard Deviation 43.7 fL (36.4-46.3); Red Blood Count 4.34 M/uL (4.2-5.4)
[2020-10-16 06:59] LABS: BUN Creatinine Ratio 11.5 (10-20); Calcium 9.1 mg/dl (8.5-10.1); Creatinine Clr Calc Pharmacy 86.6 ml/min; Est GFR (African American) 92.6; Est GFR (Non-African American) 79.9; Magnesium 2.1 mg/dl (1.8-2.4); Potassium 3.7 mmol/L (3.5-5.1)
[2020-10-16] MEDS ORDERED: POTASSIUM CHLORIDE CRTAB 20 MEQ TABCR PO STA (09:47)
--- NOTE | 2020-10-16 09:59 | Cardiology Progress Note ---
Date of Service October 16, 2020 Assessment & Plan (1) COVID-19: Continue supportive care. No hypoxia. (2) Frequent PVCs: Still with frequent unifocal PVCs on telemetry including SR with ventricular bigeminy. No sustained ventricular arrhythmias. Dizziness improved. Troponin I negative x 2. No symptoms to suggest myocarditis clinically. Supplement potassium of 3.7. Continue metoprolol succinate 25 mg daily. Outpatient cardiology follow up in 6 weeks to consider follow up diagnostic cardiac sonographer and echocardiogram after recovered from COVID-19. Increase activity as tolerated in room. If able to walk to bathroom and feeling better consider discharge. (3) Aneurysm of ascending aorta: [address] Follow up as outpatient with plan for repeat imaging by CT or echo in 6 months. I spoke to patient's by phone and provided updates with regards to findings and plans. Admission and Anticipated Discharge Date Admission Date: October 15, 2020 Subjective Patient's telemetry , and data reviewed. Pt assessed by telephone follow up. No in person examination performed. Feels improved. Dizziness resolved. Has mild headache. Physical Exam Physical Exam: Temp Pulse Resp BP Pulse Ox 36.7 C 51 L 17 139/82 96 10/16/20 08:09 10/16/20 08:09 10/16/20 08:09 10/16/20 08:09 10/16/20 08:09 No in person examination performed. Afebrile overnight. Results & Data ([facility]) Vital Signs (Past 12 Hours) Vital Signs Temp Pulse Resp BP Pulse Ox 10/16/20 08:09 36.7 C 51 L 17 139/82 96 10/16/20 04:56 36.7 C 56 L 18 123/84 94 10/15/20 23:52 36.4 C L 50 L 18 144/73 H 95 Laboratory Results CBC 10/16/20 Range/Units 05:39 WBC 6.60 (4.8-10.8) K/uL RBC 4.34 (4.2-5.4) M/uL Hgb 13.4 (12.0-16.0) g/dL Hct 40.3 (37-47) % Plt Count 329 (130-400) K/uL Neut # (Auto) 3.64 (1.4-6.5) K/uL Lymph # (Auto) 2.19 (1.2-3.4) K/uL [place] # (Auto) 0.58 (0.11-0.59) K/uL Eos # (Auto) 0.10 (0-0.5) K/uL Baso # (Auto) 0.03 (0-0.2) K/uL Comprehensive Metabolic Panel 10/16/20 Range/Units 05:39 Sodium 137 (136-145) mmol/L Potassium 3.7 (3.5-5.1) mmol/L Chloride 105 (98-107) mmol/L Carbon Dioxide 26 (21-32) mmol/L BUN 10 (7-18) mg/dl Creatinine 0.87 (0.6-1.2) mg/dl Glucose 108 H (70-99) mg/dl Calcium 9.1 (8.5-10.1) mg/dl Intake and Output 10/15/20 10/16/20 10/16/20 22:59 06:59 14:59 Intake Total 350 / 490 140 / 490 Balance 350 / 490 140 / 490 Intake: Oral 350 / 490 140 / 490 Other: Other Intake Source Patient was NPO this shift. # Unmeasured Voids 1 Weight 87.6 kg Weight Measurement Method Built in [facility]
[2020-10-16] MEDS: BUTALBITAL/ACETAMIN/CAFFEINE TAB PO PRN ×2 (10:29→14:07)
[2020-10-16] MEDS: ENOXAPARIN INJ 40 MG/0.4 ML SYR SQ SCH (10:31)
[2020-10-16] MEDS: CITALOPRAM 20 MG TAB PO SCH (10:32)
[2020-10-16] MEDS: VITAMIN B COMPLEX TAB PO SCH (10:33)
[2020-10-16] MEDS: CHOLECALCIFEROL 1,000 UNITS 25 MCG TAB PO SCH (10:33)
[2020-10-16] MEDS: METOPROLOL SUCC 25MG EXT REL TAB PO SCH (10:33)
[2020-10-16] MEDS ORDERED: SODIUM CHLORIDE 0.65% NA SOLN 45 ML (OCEAN) ONE (12:15)
--- NOTE | 2020-10-16 19:10 | Discharge Summary ---
Date of Service October 16, 2020 Admission HPI Per Admitting Provider DICTATED BY: Cisco España MD DATE OF ADMISSION: 10/15/2020 CHIEF COMPLAINT: Dizziness, weakness. HISTORY OF PRESENT ILLNESS: This is a 45-year-old female with past medical history significant for asthma, seasonal allergic rhinitis, adjustment disorder with depressed mood, who was recently diagnosed with COVID on 10/05, comes with dizziness and weakness. The patient is not sure, but she went [place] of [place] and the symptoms started around 09/28. She has asthma and has no other exposure to COVID and no one sick in the family. She thought that she developed asthma exacerbation and went to see her family doctor on 10/05. She was initially treated for asthma with a steroid shot, but also at that time checked for COVID, it came back as positive and she has been quarantining since then. Also the patient then started to have some tachycardia, palpitations. The patient says the palpitations started initially prior to steroid shot and her PCP prescribed propranolol. She started taking since Thursday and she initially took 10 mg twice daily, but it was not helping, so she is taking 20 mg twice daily, total of 40 mg. She says she did not take it today because today she was feeling very dizzy and lightheaded and weakness, and her advised to come to the hospital. In the ER, she was found to have bradycardia, PVCs and occasional bigeminy, so we were called for admission. Currently, she is resting comfortably and hemodynamically stable. On the monitor, heart rate is in the 50s and 60s. No leukopenia and lymphopenia and D-dimer was elevated at 1080. Troponin is negative, BNP is negative. As per the ER physician, CTA of the chest was done, though images are still not on the chart and there was no PE, showing some infiltrates consistent with recent COVID. Since the symptoms started more than 2 weeks ago, BioFire was done, which came back as positive for COVID. The patient says initially she had a lot of cough, but the cough is much improved, but still has some shortness of breath but that is much improved. Initially, she had diarrhea that has resolved. Initially she had low-grade fever, but since last 1 week she has no fevers. Has some headache. Initially, she had a loss of sense of smell and taste, but that has returned, but her appetite is still poor. No blurred visions. No earache, no runny nose, no sore throat. She has some chest discomfort. She describes it as pain in her lungs. Currently, no nausea, no vomiting. Currently, no diarrhea. Normal bladder movements. No rash, no swelling in the legs. Admission Exam Per Admitting Provider GENERAL: The patient is of moderate build, not in acute distress. VITAL SIGNS: Temperature 36.5, pulse ranging from 40-60s, respiratory rate 16, blood pressure 111/65, oxygen 97% on room air. HEENT: Pupils equal, round, reactive to light. Oral mucosa moist. NECK: No JVD, no neck masses seen. CARDIOVASCULAR: S1, S2 heard. Bradycardia. No murmurs, no gallop. RESPIRATORY SYSTEM: Normal AP diameter. No accessory muscle use. No wheezing, no crackles. ABDOMEN: Soft, bowel sounds present, nontender. No distention. CENTRAL NERVOUS SYSTEM: Cranial nerves II-XII grossly intact, nonfocal. EXTREMITIES: No edema, no erythema. Principal Diagnosis Bigeminy with bradyarrhythmia, dizziness with ambulation, COVID-19 without significant symptoms Discharge Exam Constitutional well developed, well nourished and + obese Eyes PERRL, conjunctivae normal, anicteric sclerae ENMT external ear and nose normal, oropharynx normal Neck trachea midline, no thyromegaly Respiratory no respiratory distress Auscultation: lungs clear to auscultation bilaterally; no crackles and no wheezes Cardiovascular Rate/Rhythm: regular rate Heart Sounds: no murmur Gastrointestinal (Abdomen) Inspection/Auscultation: normal bowel sounds; abdomen not distended Percussion/Palpation: abdomen soft; abdomen nontender Psychiatric A+Ox3, euthymic affect Lymphatic no cervical or axillary lymphadenopathy Discharge Data Allergies Allergy/AdvReac Type Severity Reaction Status Date / Time No Known Allergies Allergy Unverified 10/15/20 00:20 Consultations 10/15/20 02:11 ED Decision to Admit Stat 10/15/20 05:54 Consult Cardiology Routine Consult Case Management - Discharge Planning Routine Ordered Studies 10/15/20 01:03 CT angio chest PE protocol Urgent Hospital Course (1) COVID-19: Initial diagnosis of COVID-19 as an outpatient on 10/05/2020 without any definitive history of contact Prior to the diagnosis she has had anosmia and diarrhea on occasions but no overt shortness of breath and no fever She did not any received treatment for COVID-19 since then She presented to the ER with dizziness palpitation and generalized weakness and some shortness of breath on exertion Covid test came back positive again She has been asymptomatic and does not require any oxygen no treatment for the Covid 19 was given due to known side effect of the medications used which outweighs the benefit this time CTA did not show any infiltration and/or pulmonary embolism Saturating well on room air without any cough and/or shortness of breath Minimal cough and no wheezing still has some shortness of breath with exertion Acute migraine Takes Excedrin as an outpatient Was given Fioricet We will avoid giving any triptan (2) Bigeminy: Noted to have frequent ectopics and possible bigeminy in EKG The cause for her palpitation and dizziness with ambulation She has been getting propranolol as an outpatient which were changed to Toprol XL Appreciate cardiology input and recommendation Out any ACS-no ACS Monitor shows a few ectopics Denies any dizziness with ambulation Be discharged home this afternoon (3) Generalized weakness: Could be part of the problem due to COVID-19 Advised to drink more fluid and ambulate (4) Acute dehydration: Without any significant increase in BUN and creatinine Got 1 L of IV fluid on admission and the patient has been feeling little bit better Kidney function is normal DVT prophylaxis Subcu Lovenox Total Time Total Time Spent Total Time Spent (In Minutes): 35 minutes Total Time Includes: Examination of the Patient, Discharge Planning, Medication Reconciliation and Communication With Other Providers Discharge Plan Discharge Items Patient Disposition: Home - Self-Care Reason For Visit: DIZZINESS,WEAKNESS Discharge Diagnosis: Bigeminy with bradyarrhythmia, dizziness with ambulation, COVID-19 without significant symptoms Condition on Discharge: Good Activity: Resume your previous activity Non-emergency contact: Primary Care Provider Call non-emergency contact if: you have any medication questions and your symptoms worsen Follow-up/Referrals: Wiliam Wills MD [Primary Care Provider] - (Date & Time 10/22/2020 8:20 AM Provider Linh Brower PA-C [facility] PLEASE NOTE: THIS IS A TELEVIDEO APPOINTMENT. PLEASE FOLLOW THE INSTRUCTIONS PROVIDED IN YOUR EMAIL. IF YOU WISH TO CHANGE TO A TELEPHONE ONLY APPOINTMENT, OR IF YOU HAVE ANY QUESTIONS, PLEASE CALL .) Diet: Heart Healthy Addtl Attending Provider Instructions: Try to drink more fluid [facility] will call with an appointment Home Isolation COVID-19 Instructions The following information about Home Isolation is from the CDC Website: https://www.cdc.gov/coronavirus/2019-ncov/hcp/zitncthl-qtfaajm-bahxug.html Stay home except to get medical care People who are mildly ill with COVID-19 are able to isolate at home during their illness. You should restrict activities outside your home, except for getting medical care. Do not go to work, school, or public areas. Avoid using public transportation, ride-sharing, or taxis. Separate yourself from other people and animals in your home People: As much as possible, you should stay in a specific room and away from other people in your home. Also, you should use a separate bathroom, if available. Animals: You should restrict contact with pets and other animals while you are sick with COVID-19, just like you would around other people. Although there have not been reports of pets or other animals becoming sick with COVID-19, it is still recommended that people sick with COVID-19 limit contact with animals until more information is known about the virus. When possible, have another member of your household care for your animals while you are sick. If you are sick with COVID-19, avoid contact with your pet, including petting, snuggling, being kissed or licked, and sharing food. If you must care for your pet or be around animals while you are sick, wash your hands before and after you interact with pets and wear a face mask. Call ahead before visiting your doctor If you have a medical appointment, call the healthcare provider and tell them that you have or may have COVID-19. This will help the healthcare providers office take steps to keep other people from getting infected or exposed. Wear a face mask You should wear a face mask when you are around other people (e.g., sharing a room or vehicle) or pets and before you enter a healthcare providers office. If you are not able to wear a face mask (for example, because it causes trouble breathing), then people who live with you should not stay in the same room with you, or they should wear a face mask if they enter your room. Cover your coughs and sneezes Cover your mouth and nose with a tissue when you cough or sneeze. Throw used tissues in a lined trash can. Immediately wash your hands with soap and water for at least 20 seconds or, if soap and water are not available, clean your hands with an alcohol-based hand cooper apprentice that contains at least 60% alcohol. Clean your hands often Wash your hands often with soap and water for at least 20 seconds, especially after blowing your nose, coughing, or sneezing; going to the bathroom; and before eating or preparing food. If soap and water are not readily available, use an alcohol-based hand cooper apprentice with at least 60% alcohol, covering all surfaces of your hands and rubbing them together until they feel dry. Soap and water are the best option if hands are visibly dirty. Avoid touching your eyes, nose, and mouth with unwashed hands. Avoid sharing personal household items You should not share dishes, drinking glasses, cups, eating utensils, towels, or bedding with other people or pets in your home. After using these items, they should be washed thoroughly with soap and water. Clean all high-touch surfaces everyday High touch surfaces include counters, tabletops, doorknobs, bathroom fixtures, toilets, phones, keyboards, tablets, and bedside tables. Also, clean any surfaces that may have blood, stool, or body fluids on them. Use a household cleaning spray or wipe, according to the label instructions. Labels contain instructions for safe and effective use of the cleaning product including precautions you should take when applying the product, such as wearing gloves and making sure you have good ventilation during use of the product. Monitor your symptoms Seek prompt medical attention if your illness is worsening (e.g., difficulty breathing).Beforeseeking care, call your healthcare provider and tell them that you have, or are being evaluated for, COVID-19. Put on a face mask before you enter the facility. These steps will help the healthcare providers office to keep other people in the office or waiting room from getting infected or exposed. Ask your healthcare provider to call the local or state health department. Persons who are placed under active monitoring or facilitated self- monitoring should follow instructions provided by their local health department or occupational health professionals, as appropriate. When working with your local health department check their available hours. If you have a medical emergency and need to call 911, notify the dispatch personnel that you have, or are being evaluated for COVID-19. If possible, put on a face mask before emergency medical services arrive. Discontinuing home isolation Patients with confirmed COVID-19 should remain under home isolation precautions until the risk of secondary transmission to others is thought to be low. The decision to discontinue home isolation precautions should be made on a [id number] basis, in consultation with healthcare providers and [facility] and local health departments. Pending Studies at Discharge: No Stand-Alone Forms: [facility] [place] [employer], Smoking Cessation Medications and DC Order Prescriptions: New metoprolol succinate 25 mg tablet extended release 24 hr 25 mg PO DAILY Qty: 30 RF: 0 Continued zinc acetate 50 mg (zinc) Capsule 50 mg PO DAILY RF: 0 citalopram 10 mg Tablet 10 mg PO DAILY RF: 0 B-complex with vitamin C Tablet Extended Release 1 tab PO DAILY RF: 0 cholecalciferol (vitamin D3) [Vitamin D3] 50 mcg (2,000 unit) Tablet 50 mcg PO DAILY RF: 0 Discontinued propranolol 10 mg Tablet 10 mg PO DAILY RF: 0 Discharge Orders: Discharge Order (Routine); Ordered 10/16/20 Ordered By: Emre Alves Admission Data Admit Date/Time: 10/15/20 03:20 Attending Provider: Emre Alves Admit Provider: Cisco España Primary Care Provider: Wiliam Wills I. Other Providers: Cisco España ; Anatoly Davis ; Enrique Jewell ; Tristin Elliott ; Erick Larry ; Timothy Beth ; Efren Dunn ; Lucía Santillan ; Carole Guzman ; Anthony Voss Other Interventions: Discharge Summary Assessment (RN) Last Done: 10/16/20 15:04
== END 2020-10-16 18:00 | disposition home or self-care (01) | DRG 179 ==
LOC: ED 23:13 → EDBD 23:13 → 2S 10-15 03:20